=== PATIENT | female | born 1990 | race Caucasian/White ===

== ENCOUNTER 2019-09-19 03:45 | Emergency (ER) | payer BC ==
[~2019-09-19] VITALS: Ht 160 cm; Wt 77.4 kg
[2019-09-19] MEDS ORDERED: ONDANSETRON 2MG/ML, 2ML ONE (04:13)
[2019-09-19] MEDS ORDERED: MORPHINE SULFATE 4 MG/ML, 1ML ONE ×2 (04:13→05:37)
[2019-09-19] MEDS: MORPHINE SULFATE 4 MG/ML, 1ML IVPush PRN ×2 (04:18→05:38)
[2019-09-19] MEDS ORDERED: ONDANSETRON 2MG/ML, 2ML IVPush ONE (04:30)
[2019-09-19 04:39] LABS: BASOPHILS # (AUTO) 0.04 x10^3/uL (0-0.1); BASOPHILS % (AUTO) 1 % (0-1); EOSINOPHILS # (AUTO) 0.39 x10^3/uL (0-0.4); EOSINOPHILS % (AUTO) 4 % (1-7); LYMPHOCYTES # (AUTO) 2.18 x10^3/uL (1-3.4); LYMPHOCYTES % (AUTO) 23 % (22-44); MD NO; MEAN CORPUSCULAR HEMOGLOBIN 31.7 pg (27.0-34.8); MEAN PLATELET VOLUME 8.1 fL (7.4-10.4); MONOCYTES # (AUTO) 0.57 x10^3/uL (0.2-0.8); MONOCYTES % (AUTO) 6 % (2-9); NEUTROPHILS # (AUTO) 6.21 x10^3/uL (1.8-6.8); NEUTROPHILS % (AUTO) 66 % (42-75); PLATELET COUNT 281 x10^3/uL (130-400); RED BLOOD COUNT 4.78 x10^6/uL (3.82-5.3); RED CELL DISTRIBUTION WIDTH 11.9 % (9.6-15.2)
[2019-09-19 04:47] LABS: ALBUMIN 3.9 g/dL (3.4-5.0); ANION GAP 9 mmol/L (5-15); CALCIUM 9.3 mg/dL (8.5-10.1); CHLORIDE 109 mmol/L (98-107)
[2019-09-19 04:54] LABS: ALANINE AMINOTRANSFERASE 86 U/L (12-78); ALKALINE PHOSPHATASE 103 U/L (45-117); BILIRUBIN,TOTAL 0.7 mg/dL (0.2-1.0); CREATININE 0.81 mg/dL (0.55-1.02); TOTAL PROTEIN 7.6 g/dL (6.4-8.2)
[2019-09-19] MEDS ORDERED: METOCLOPRAMIDE 5 MG/ML, 2ML ONE (05:36)
[2019-09-19] MEDS ORDERED: METOCLOPRAMIDE 5 MG/ML, 2ML IVPush ONE (06:00)
[2019-09-19 06:12] VITALS: BP 122/80
== END 2019-09-19 06:14 | disposition home or self-care (01) ==
LOC: ED 04:44
DX: K86.9 Disease of pancreas, unspecified (principal); R10.84 Generalized abdominal pain; R10.13 Epigastric pain; R11.0 Nausea; Z90.49 Acquired absence of other specified parts of digestive tract
CPT/HCPCS: 36415; 80053; 83690; 84703; 85025; 96374; 96375; 96376; 99284; J2270; J2405; J2765